=== PATIENT | male | born 1955 | race Caucasian/White ===

== ENCOUNTER 2017-12-08 10:27 | Emergency (ER) | payer OTHER ==
--- NOTE | 2017-12-08 10:44 | EDPHY ---
General - History Smoking Status: Never smoked <Jose Luis Disla - Last Filed: 12/08/17 11:26> - Diagnostics EKG: I reviewed patient's EKG. See [employer] system for interpretation <Boogie Roy - Last Filed: 12/08/17 13:53> Time Seen by Provider: 12/08/17 10:35 Narrative: CHIEF COMPLAINT: Confusion HISTORY OF PRESENT ILLNESS: Patient presents from prior vehicle that he drove with complaints of confusion. He states that he exercised this morning and felt well. After this he sat down and is does to check his emails. He says he abruptly began to feel confused. He states the difficult to describe but that he had difficulty understanding why certain objects with the room, while he was working on his emails and difficulty focusing on the emails he was reading. He denies any difficulty actually reading, walking. He denies any numbness, weakness or difficulty speaking. He states that he called a friend to discuss with him. Symptoms have been steady in slowly improving. On the drive here he describes some tingling of the left leg below the knee. No numbness. No previous episode of this. No chest pain or shortness of breath. No headache. No modifying factors. No other associated complaints REVIEW OF SYSTEMS: 10 systems were reviewed and negative with the exception of the elements mentioned in the history of present illness. PCP: Dr. Yu SPECIALISTS: None PAST MEDICAL HISTORY: Denies any medical diagnoses PAST SURGICAL HISTORY: Denies surgical history SOCIAL HISTORY: Never smoker. Lives independently in [place]. 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 Conversing in full coherent sentences. Head: normocephalic, atraumatic Eyes: Pupils equal and round, no conjunctival pallor or injection. EOM symmetric. No nystagmus. No dysconjugate gaze. ENT, Mouth: Mucous membranes moist Neck: Normal inspection, supple, non-tender Respiratory: Lungs are clear to auscultation. No wheezing rhonchi or crackles Cardiovascular: Regular rate and rhythm. No murmur Gastrointestinal: Abdomen is soft and nontender Back: non-tender, no bony abnormalities Neurological: GCS 15. A&O, nonfocal, normal steady gait. Light sensory symmetric upper lower extremities. Strength is symmetric upper lower extremities. No pronator drift. Normal [id number]. NIH stroke scale 0. Skin: Warm and dry, no rash Extremities: Nontender, no pedal edema Psychiatric: Mood and affect normal DIFFERENTIAL DIAGNOSES: Including but not limited to TIA, CVA, electrolyte disturbance MDM: 10:44 a.m. Reported confusion reported left lower the leg paresthesia with no focal findings on examination. His NIH stroke scale is 0. He is awake and alert. He is ambulatory without difficulty. He has a normal steady gait. I discussed with Dr. Roy and he will evaluate the patient. 11:[address] Roy has evaluated patient will assume care the patient at this time. Abnormal her active in the patient's care. Please see his note for further care and disposition. SUPERVISION: Patient was evaluated and examined in conjunction with my secondary supervising physician as documented. We have both examined the patient. CONSULTATION: (Jose Luis Disla) Medical Decision Making: Independent physician evaluation: I evaluated and participated in the management of the patient. I also evaluated the patient independently. My co-signature indicates that I have reviewed this chart and I agree with the findings and plan of care as documented. My personal H&P findings include: The patient presents to the ED after an episode of confusion and disorientation after exercise this morning. The patient denies any focal neurologic deficits aside from some possible numbness behind his left leg. The patient denies headache. He has no history of stroke or TIA. He has no significant past medical history. The patient denies any fever, neck stiffness or significant headache. He denies any chest pain or shortness of breath. Physical exam: General Appearance: Alert, no distress Eyes: Pupils equal and round no pallor or injection ENT, Mouth: Mucous membranes moist Respiratory: There are no retractions, lungs are clear to auscultation Cardiovascular: Regular rate and rhythm Gastrointestinal: Abdomen is soft and nontender, no masses, bowel sounds normal Neurological: A&O, normal motor function, normal sensory exam, normal cranial nerves, NIH stroke scale 0 Skin: Warm and dry, no rashes Musculoskeletal: Neck is supple nontender Extremities: symmetrical, full range of motion Psychiatric: Patient is oriented X 3, there is no agitation ED course: Patient's EKG demonstrates no evidence of an arrhythmia. The patient was noted to be neurologically intact. He presented to the ED after transient confusion following exercise. The patient had no specific localizing symptoms noted on exam. TIA felt to be unlikely however not fully excluded. Workup in the emergency department consisted of a CT scan of the head which demonstrated no evidence of intracranial hemorrhage. The patient had angiographic studies of the head neck which demonstrated no evidence of dissection or thrombosis. MRI of the brain demonstrated no evidence of an acute stroke. The patient has no risk factors for vascular disease. The patient was observed in the emergency department for several hours without any recurrent neurologic symptoms. The patient will be discharged home at this point time given his negative workup. I have referred him to our on-call neurologist for any persistent symptoms. The patient has been advised to return to the ED immediately should he develop more significant neurologic symptoms of severe headache, numbness, weakness, dysarthria, difficulty with ambulation or other acute complaints. Differential diagnosis considered includes stroke, TIA, carotid dissection, migraine variant, SPREADING MACHINE OPERATOR tumor, metabolic derangement (Boogie Roy) - Diagnostics EKG Interpretation: EKG: Complete interpretation has been separately recorded in the [facility] archive. Summary impression: Sinus rhythm, rate 72, incomplete right bundle branch block. (Boogie Roy) Imaging Results: Imaging Impressions Head CT 12/08/17 11:17 Impression: Normal. Findings and recommendations discussed with Boogie Roy at 11:56 AM hour, 12/08/2017. Final report concurs with initial preliminary interpretation. Head CTA 12/08/17 11:17 Impression: Normal. Findings and recommendations discussed with Boogie Roy at 11:56 AM hour, 12/08/2017. Final report concurs with initial preliminary interpretation. Neck CTA 12/08/17 11:17 Impression: Nothing acute. Findings and recommendations discussed with Boogie Roy at 11:56 AM hour, 12/08/2017. Final report concurs with initial preliminary interpretation. Note: All stenoses are calculated using NASCET Criteria. Brain MRI 12/08/17 12:03 Impression: 1. No acute intracranial findings. 2. Atrophy with scattered nonspecific white matter change most likely related to chronic microvascular ischemic gliosis. Findings discussed with Boogie Roy 12/08/2017 at 13:44. - Objective Vital Signs: Initial Vital Signs Temperature (C) 36.5 C 12/08/17 10:28 Heart Rate 81 12/08/17 10:28 Respiratory Rate 16 12/08/17 10:28 Blood Pressure 146/92 H 12/08/17 10:28 O2 Sat (%) 97 12/08/17 10:28 O2 Delivery Mode Room Air Allergies/Adverse Reactions: No Known Allergies Allergy (Unverified 12/08/17 10:28) Home Medications: Medication Instructions Recorded NK [No Known Home Meds] 12/08/17 Laboratory Results: Laboratory Results 12/08/17 11:05 12/08/17 12/08/17 11:11 11:05 WBC 3.69 10^3/uL L 10^3/uL (3.80-9.50) RBC 4.72 10^6/uL 10^6/uL (4.40-6.38) Hgb 15.5 g/dL g/dL (13.7-17.5) POC Hgb 16.0 gm/dL gm/dL (13.7-17.5) Hct 44.3 % % (40.0-51.0) POC Hct 47 % % (40-51) MCV 93.9 fL fL (81.5-99.8) MCH 32.8 pg pg (27.9-34.1) MCHC 35.0 g/dL g/dL (32.4-36.7) RDW 13.1 % % (11.5-15.2) Plt Count 254 10^3/uL 10^3/uL (150-400) MPV 9.9 fL fL (8.7-11.7) Neut % (Auto) 61.6 % % (39.3-74.2) Lymph % (Auto) 29.0 % % (15.0-45.0) [place] % (Auto) 7.0 % % (4.5-13.0) Eos % (Auto) 1.6 % % (0.6-7.6) Baso % (Auto) 0.8 % % (0.3-1.7) Nucleat RBC Rel Count 0.0 % % (0.0-0.2) Absolute Neuts (auto) 2.27 10^3/uL 10^3/uL (1.70-6.50) Absolute Lymphs (auto) 1.07 10^3/uL 10^3/uL (1.00-3.00) Absolute Monos (auto) 0.26 10^3/uL L 10^3/uL (0.30-0.80) Absolute Eos (auto) 0.06 10^3/uL 10^3/uL (0.03-0.40) Absolute Basos (auto) 0.03 10^3/uL 10^3/uL (0.02-0.10) Absolute Nucleated RBC 0.00 10^3/uL 10^3/uL (0-0.01) Immature Gran % 0.0 % % (0.0-1.1) Immature Gran # 0.00 10^3/uL 10^3/uL (0.00-0.10) POC Sodium 143 mEq/L mEq/L (135-145) POC Potassium 4.0 mEq/L mEq/L (3.3-5.0) POC Chloride 106 mEq/L mEq/L (97-110) POC BUN 17 mg/dL mg/dL (7-23) POC Creatinine 1.0 mg/dL mg/dL (0.7-1.3) POC Glucose 104 mg/dL H mg/dL (70-100) Point of Care Test Results: Chemistry 12/08/17 11:11 POC Sodium 143 mEq/L mEq/L (135-145) POC Potassium 4.0 mEq/L mEq/L (3.3-5.0) POC Chloride 106 mEq/L mEq/L (97-110) POC BUN 17 mg/dL mg/dL (7-23) POC Creatinine 1.0 mg/dL mg/dL (0.7-1.3) POC Glucose 104 mg/dL H mg/dL (70-100) ISTAT H&H 12/08/17 11:11 POC Hgb 16.0 gm/dL gm/dL (13.7-17.5) POC Hct 47 % % (40-51) Departure <Jose Luis Disla - Last Filed: 12/08/17 11:26> <Boogie Roy - Last Filed: 12/08/17 13:53> - Departure Disposition: Home, Routine, Self-Care Clinical Impression: Altered mental status Condition: Good Instructions: Altered Mental Status (ED) Additional Instructions: 1. Your workup in the emergency department today is unrevealing. Specifically you have no evidence of a stroke noted on your brain MRI. I highly doubt this was a presentation of TIA given your symptoms. I would recommend following up with our on-call neurologist for any ongoing mild intermittent symptoms. You have been given the contact number for Dr. Chery. 2. Please return to the ED immediately for any severe headache, recurrent neurologic symptoms, fever or other concerns. 3. I speculate your symptoms today are most likely secondary to a migraine variant. Referrals: Wili Chery MD [Medical Doctor] - As per Instructions
[2017-12-08 11:15] LABS: PLATELET COUNT 254 10^3/uL (150-400)
[2017-12-08] MEDS ORDERED: IOPAMIDOL (ISOVUE 370) 100 ML BTL IV ONE (11:21)
--- NOTE | 2017-12-08 11:21 | CPEKG ---
Test Reason : OPEN Blood Pressure : / mmHG Vent. Rate : 072 BPM Atrial Rate : 071 BPM P-R Int : 163 ms QRS Dur : 112 ms QT Int : 381 ms P-R-T Axes : 061 057 053 degrees QTc Int : 417 ms Sinus rhythm Incomplete right bundle branch block Confirmed by Boogie Roy ([id number]) on 12/08/2017 11:21:31 AM Referred By: Confirmed By:Boogie Roy
[2017-12-08 13:35] VITALS: BP 123/85
== END 2017-12-08 14:19 | disposition home or self-care (01) ==
DX: R41.82 Altered mental status, unspecified (principal)
CPT/HCPCS: 82435-PO; 82565-PO; 82947-PO; 84132-PO; 84295-PO; 84520-PO; 85014-PO; Q9967